=== PATIENT | female | born 1990 | race Two or more races ===

== ENCOUNTER 2016-07-27 01:32 | Outpatient (CLI) | payer OTHER ==
[~2016-07-27] VITALS: Ht 167.6 cm; Wt 66.8 kg
[~2016-07-27 01:32] MED LIST: IRON18TA PO; PREN1TAB60 PO
[2016-07-27 02:05] VITALS: BP 124/58
== END 2016-07-27 02:30 | disposition home or self-care (01) ==
LOC: LDOP 01:32
PROVIDERS: ATTEND Obstetrics & Gynecology
DX: O42.913 Preterm premature rupture of membranes, unspecified as to length of time between rupture and onset of labor, third trimester (principal); O62.9 Abnormality of forces of labor, unspecified; Z3A.36 36 weeks gestation of pregnancy
CPT/HCPCS: 59025; 87081; 87147; 89060; 99211; G0463; Q0114

== ENCOUNTER 2016-08-17 10:14 | Outpatient (CLI) | payer OTHER ==
[~2016-08-17] VITALS: Ht 167.6 cm; Wt 69.1 kg
[2016-08-17 10:27] VITALS: BP 135/69
== END 2016-08-17 13:02 | disposition home or self-care (01) ==
LOC: LDOP 10:14
PROVIDERS: ATTEND Obstetrics & Gynecology
DX: O36.8130 Decreased fetal movements, third trimester, not applicable or unspecified (principal); O62.9 Abnormality of forces of labor, unspecified; Z3A.39 39 weeks gestation of pregnancy
CPT/HCPCS: 59025; 76819; 99211; G0463

== ENCOUNTER 2016-08-17 23:58 | Inpatient (IN) | payer OTHER ==
[~2016-08-17] VITALS: Ht 167.6 cm; Wt 55.9 kg
[2016-08-18] MEDS ORDERED: FENTANYL PF 100 MCG/2ML ONE (00:07)
[2016-08-18] MEDS ORDERED: NEWBORN KIT ONE (00:17)
[2016-08-18] MEDS ORDERED: OXYTOCIN 30U/ 0.9% NaCL 500ML 500 ML ONE ×2 (00:19→00:21)
[2016-08-18] MEDS ORDERED: LIDOCAINE 1%, 20ML ONE (00:21)
[2016-08-18] MEDS ORDERED: MISOPROSTOL 200 MCG TABLET ONE (00:21)
[2016-08-18 03:15] VITALS: BP 112/68
[2016-08-18] MEDS: OXYTOCIN 30U/ 0.9% NaCL 500ML 500 ML IV SCH ×2 (04:51→14:51)
[2016-08-18] MEDS ORDERED: MISOPROSTOL 200 MCG TABLET PR PRN (05:00)
[2016-08-18] MEDS ORDERED: IBUPROFEN 600 MG TABLET PO PRN (05:00)
[2016-08-18] MEDS ORDERED: OXYcodone/APAP 5/325MG TABLET PO PRN ×2 (05:00)
[2016-08-18] MEDS ORDERED: ONDANSETRON 2MG/ML, 2ML IV PRN (05:00)
[2016-08-18] MEDS ORDERED: ACETAMINOPHEN 325 MG TABLET PO PRN (05:00)
[2016-08-18 07:06] LABS: LARGE PLATELETS 2+
[2016-08-18 08:30] VITALS: BP 101/64
[2016-08-18] MEDS: DOCUSATE 100 MG CAPSULE PO PRN (08:34)
[2016-08-18] MEDS: PRENATAL VIT/IRON/FA 1 EACH TABLET PO SCH (09:00)
[2016-08-18] MEDS ORDERED: RHOGAM FROM BLOOD BANK 1 NOTE EA IM/IV ONE (13:00)
[2016-08-18 17:45] VITALS: BP 112/61
[2016-08-18 20:15] VITALS: BP 96/60
[2016-08-18] MEDS ORDERED: PLEASE ENTER HEIGHT AND WEIGHT MC SCH (22:30)
[2016-08-18] MEDS ORDERED: MEASLES,MUMPS&RUBELLA VACC/PF 0.5 ML SQ-VACC ONE (22:30)
[2016-08-19] MEDS: OXYTOCIN 30U/ 0.9% NaCL 500ML 500 ML IV SCH (00:51)
[2016-08-19] MEDS ORDERED: OXYC-302 PO (03:38)
[2016-08-19] MEDS ORDERED: IBUP-1222 PO (03:39)
[2016-08-19] MEDS ORDERED: FERROUS SULFATE 325 MG TABLET PO SCH (08:00)
[2016-08-19 08:10] VITALS: BP 113/68
[2016-08-19] MEDS: PRENATAL VIT/IRON/FA 1 EACH TABLET PO SCH (08:54)
[2016-08-19] MEDS: DOCUSATE 100 MG CAPSULE PO PRN (08:54)
== END 2016-08-19 10:53 | disposition home or self-care (01) | DRG 775 ==
LOC: LDOP 23:58 → LDIP 08-18 00:02 → 2NW 08-18 03:15
PROVIDERS: ADMIT Obstetrics & Gynecology; ATTEND Obstetrics & Gynecology
PROC: 10E0XZZ Delivery of Products of Conception, External Approach (ICD-10-PCS; principal; 2016-08-18)
PROC: 0HQ9XZZ Repair Perineum Skin, External Approach (ICD-10-PCS; 2016-08-18)
DX: O69.81X0 Labor and delivery complicated by cord around neck, without compression, not applicable or unspecified (principal); D64.9 Anemia, unspecified; O99.02 Anemia complicating childbirth; O77.0 Labor and delivery complicated by meconium in amniotic fluid; Z37.0 Single live birth; Z3A.39 39 weeks gestation of pregnancy; O70.0 First degree perineal laceration during delivery
CPT/HCPCS: 36415; 85025; 85461; 86850; 86900; J2790